=== PATIENT | male | born 1995 | race Caucasian/White ===

== ENCOUNTER 2016-12-24 20:27 | Emergency (ER) | payer BC, OTHER ==
[~2016-12-24] VITALS: Ht 175.3 cm; Wt 109.1 kg
[~2016-12-24 20:27] MED LIST: ABL15 PO; LTH300C PO
[2016-12-24 20:30] VITALS: TEMP 37.3; Ht 175.3 cm; Wt 109.1 kg
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
[2016-12-24 21:35] LABS: BASO % 0.1 %; BASO ABS # 0.01 K/uL (0-0.2); COMPLETE YES; EOS % 1.3 %; HEMATOCRIT 46.2 % (42-52); IG% 0.2 %; LYMPH % 16.9 %; MEAN CELL VOLUME 82.2 fL (80-100); MEAN CORPUSCULAR HEMOGLOBIN 28.5 pg (25-34); MEAN CORPUSCULAR HGB CONC 34.6 g/dl (32-36); MEAN PLATELET VOLUME 9.5 fL (7.4-10.4); MONO % 5.2 %; NEUT % 76.3 %; PLATELET COUNT 230 K/uL (130-400); RED BLOOD COUNT 5.62 M/uL (4.7-6.1); WHITE BLOOD COUNT 8.89 K/uL (4.8-10.8)
[2016-12-24 21:39] LABS: BENZODIAZEPINE, URINE NEG (NEG); COCAINE,URINE NEG (NEG); PHENCYCLIDINE, URINE NEG (NEG)
[2016-12-24 21:52] LABS: BUN/CREATININE RATIO 20.9 (10-20); CREATININE 0.9 mg/dl (0.60-1.40); POTASSIUM 3.9 mmol/L (3.5-5.1)
[2016-12-24 22:12] LABS: LITHIUM < 0.2 mMOL/L (0.6-1.2)
[2016-12-24 22:20] LABS: ACETAMINOPHEN < 2 ug/ml (10-30)
[2016-12-25 01:16] VITALS: BP 132/73; PULSE 76; O2SAT 96
== END 2016-12-25 01:20 ==
LOC: C.EDB 20:29 → C.EDA 12-25 01:20
DX: F32.9 Major depressive disorder, single episode, unspecified (principal); R45.851 Suicidal ideations; F41.9 Anxiety disorder, unspecified; Z87.891 Personal history of nicotine dependence

== ENCOUNTER 2017-09-10 23:17 | Emergency (ER) | payer BC, OTHER ==
[~2017-09-10] VITALS: Ht 175.3 cm; Wt 108.8 kg
[2017-09-10 23:21] VITALS: BP 162/86; PULSE 90; TEMP 36.9; O2SAT 98; Ht 175.3 cm; Wt 108.8 kg
[2017-09-10] MEDS ORDERED: DEXAMETHASONE SOD INJ 4 MG/ML VIAL IM STA (23:39)
[2017-09-10] MEDS ORDERED: DEXAMETHASONE INJ 8 MG in SYRINGE 0 ML IM STA (23:39)
--- NOTE | 2017-09-10 23:49 | EMERGENCY ROOM VISIT NOTE ---
ED Visit Note First contact with patient: 23:26 CHIEF COMPLAINT: Rash HISTORY OF PRESENT ILLNESS: This 21-year-old male patient presents to the emergency department, ambulatory, complaining of a rash on his entire upper body which started yesterday after wearing a full shirt he received for [employer], and worsened today after wearing the shirt again. He states he noticed the rash when he got home yesterday, and states the only thing that was different was he wear this brand-new shirt to an event. He states he noticed the rash initially in his armpits, on his hands, and his abdomen. He states he took a shower, and felt that the rash improved. This evening, he forgot that the shirt seemed to cause a rash yesterday, and or the shirt for another hour this evening. He states when he took it off, he noticed that he had a severe rash on both arms, his chest, his back, and abdomen. He has taken no medications or used any creams or lotions, as he states he does not have anything at home to take. The patient denies fever, chills, nausea, or loss of appetite. They deny any URI symptoms. The patient states the rash is itchy and rates the discomfort as 7/10. No change in food, soap, detergents, or other environmental factors. No new medications. No weakness or numbness. REVIEW OF SYSTEMS: A 6 system review of systems was completed with positives and pertinent negatives listed in the HPI. ALLERGIES: Adderall, risperidone MEDICATIONS: None PMH: None SOCIAL HISTORY: The patient lives locally with [facility]. He denies drug, alcohol , tobacco use. PHYSICAL EXAM: Vital Signs: Reviewed Nurse's notes, vital signs stable. GENERAL : This is a 21-year-old obese white male, in no acute distress, well-developed, well-nourished. SKIN: Maculopapular rash noted on bilateral hands, arms, and anterior left abdomen. There are excoriations noted in all areas of the rash. There is no drainage. There is no diaphoresis or cyanosis noted. Capillary refill less than 2 seconds. EMERGENCY DEPARTMENT COURSE: The patient was seen and evaluated as above. The rash appears consistent with a contact dermatitis due to the wool shirt the patient wore for the first time based on history and physical examination. The patient was given 8mg Decadron and 50mg Benadryl for the itchiness. Discharge instructions were reviewed. The patient was discharged home in good condition. I attest that I have personally reviewed the patient's current medication list. Blood Pressure Screening: Patient was found to have a slightly elevated blood pressure due to circumstances. I do not believe that the patient requires hypertension monitoring. DIFFERENTIAL DIAGNOSIS: Contact dermatitis, allergic dermatitis, urticaria, allergic reaction, anaphylaxis, metabolic disorder, endocrine disorder, burn, hepatic abnormality, malignancy, and others DIAGNOSIS: contact dermatitis Problem List Medical Problems: (1) Anxiety Status: Chronic (2) Depression Status: Chronic Current/Historical Medications No Active Prescriptions or Reported Meds Allergies Coded Allergies: Amphetamine (Unverified Allergy, Unknown, TREMOR, 09/10/17) PT IS NOT SURE IF IT WAS ADDERALL OR RISPERDAL Dextroamphetamine (Unverified Allergy, Unknown, TREMOR, 09/10/17) PT IS NOT SURE IF IT WAS ADDERALL OR RISPERDAL Risperidone (Unverified Allergy, Unknown, TREMOR, 09/10/17) PT NOT SURE IF IT WAS ADDERALL OR RISPERDAL Vital Signs Date Time Temp Pulse Resp B/P (MAP) Pulse Ox O2 Delivery O2 Flow Rate FiO2 09/10/17 23:21 36.9 90 18 162/86 98 Room Air Medications Administered Medications (Trade) Dose Ordered Sig/Laura Route Start Time Stop Time Status Last Admin Dose Admin Diphenhydramine HCl (Benadryl Cap) 50 mg NOW STAT PO 09/10/17 23:39 09/10/17 23:41 DC 09/10/17 23:49 50 MG Departure Information Impression Primary Impression: Contact dermatitis Dispostion Home / Self-Care Condition GOOD Prescriptions No Active Prescriptions or Reported Meds Referrals Melody Griffin M.D. (PCP) Patient Instructions ED Allergic Reaction Local Other, My [facility] Additional Instructions You have been treated in the Emergency Department for an Allergic Reaction. You have been treated and monitored in the Emergency Department appropriately. You should take Benadryl (diphenhydramine) 25-50 mg orally every 4-6 hours for the next 5-7 days. This medication is [id number] and you will NOT need a prescription to purchase this at your local pharmacy. You should continue taking the Benadryl for the COMPLETION of the 5-7 days. This is to prevent a rebound allergic reaction in the event that allergens are still present in your system. You were given Decadron, a steroid, in the emergency department. You may use OTC Benadryl or steroid cream such as hydrocortisone cream. These can be picked up at any pharmacy. As with every Emergency Department visit, you should follow-up with your primary care provider in 2-3 days for reevaluation. Return to the Emergency Department if your current symptoms worsen despite treatment course outlined above, or if you develop any of the following symptoms : wheezing, tongue or face swelling, tightness in your throat, shortness of breath, or fainting. Problem Qualifiers Primary Impression: Contact dermatitis Contact dermatitis type: allergic Contact dermatitis trigger: other trigger Qualified Codes: L23.89 - Allergic contact dermatitis due to other agents
[2017-09-10] MEDS ORDERED: DEXAMETHASONE SOD INJ 4 MG/ML VIAL ONE (23:51)
== END 2017-09-11 00:08 | disposition home or self-care (01) ==
LOC: C.EDB 23:19 → C.EDA 09-11 00:08
DX: L23.89 Allergic contact dermatitis due to other agents (principal); F41.9 Anxiety disorder, unspecified; F32.9 Major depressive disorder, single episode, unspecified

== ENCOUNTER 2021-06-08 00:16 | Inpatient (IN) ==
[2021-06-08] MEDS ORDERED: DEXAMETHASONE SOD INJ 4 MG/ML VIAL ONE (01:21)
[2021-06-08 01:37] LABS: Basophils # (auto) 0.01 K/uL (0-0.2); Basophils % (auto) 0.2 %; Eosinophils # (auto) 0.01 K/uL (0-0.5); Eosinophils % (auto) 0.2 %; Hematocrit (blood only) 40.9 % (42-52); Immature Granulocytes # (auto) 0.01 K/uL (0.00-0.02); Immature Granulocytes % (auto) 0.2 %; Lymphocytes # (auto) 0.98 K/uL (1.2-3.4); Lymphocytes % (auto) 20.5 %; Mean Corpuscular Hemoglobin 27.8 pg (25-34); Mean Corpuscular Hgb Conc 34.2 g/dL (32-36); Mean Corpuscular Volume 81.3 fL (80-100); Mean Platelet Volume 9.2 fL (7.4-10.4); Monocytes # (auto) 0.35 K/uL (0.11-0.59); Monocytes % (auto) 7.3 %; Neutrophils # (auto) 3.43 K/uL (1.4-6.5); Neutrophils % (auto) 71.6 %; Platelet Count 158 K/uL (130-400); RDW Coefficient of Variation 13.7 % (11.5-14.5); RDW Standard Deviation 41.2 fL (36.4-46.3); Red Blood Count 5.03 M/uL (4.7-6.1); White Blood Count 4.79 K/uL (4.8-10.8)
[2021-06-08 01:58] LABS: Alanine Aminotransferase 48 U/L (12-78); Aspartate Aminotransferase 43 U/L (15-37); BUN Creatinine Ratio 10.4 (10-20); Blood Urea Nitrogen 10 mg/dl (7-18); Calcium 7.9 mg/dl (8.5-10.1); Carbon Dioxide 25 mmol/L (21-32); Chloride 101 mmol/L (98-107); Creatinine Clr Calc Pharmacy 128.2 ml/min; Est GFR (African American) 122.8 ml/min; Glucose 135 mg/dl (70-99); Potassium 3.7 mmol/L (3.5-5.1); Sodium 133 mmol/L (136-145)
[2021-06-08 02:03] LABS: Albumin Globulin Ratio 0.7 (0.9-2); Alkaline Phosphatase 66 U/L (45-117); Bilirubin,Total 0.4 mg/dl (0.2-1); Globulin 4.1 gm/dl (2.5-4.0); Total Protein 7.1 gm/dl (6.4-8.2); Troponin I < 0.015 ng/ml (0-0.045)
[2021-06-08 02:31] LABS: D Dimer 400 ug/L FEU (0-500)
[2021-06-08] MEDS ORDERED: OPTIRAY 320 125ml IV ONE (02:40)
--- NOTE | 2021-06-08 03:08 | Emergency Department Note ---
Impression & Plan Pneumonia due to 2019 novel coronavirus, Hypoxia ED Provider Note INFORMANT: Patient ED PROVIDER(S): Michael Siegel MD CHIEF COMPLAINT: Shortness of PLAN: Disposition: Admit Condition: Good Outpatient prescription management: none Referral: None MEDICAL DECISION MAKING: Patient presented back to emergency department. He is requiring supplemental oxygen. Overall he is stable otherwise. He had unremarkable CBC and chemistry panel. The patient underwent CT imaging of his chest and significant bilateral infiltrates are noted consistent with Covid pneumonia. Patient was given IV Decadron. Consultation was made with Dr. Pratik Parham, [facility] hospitalist service. Patient was evaluated in the ER and admitted for further management. Triage Nursing notes reviewed and agree them. Vital Signs: reviewed and remarkable for hypoxia Differential diagnosis: COVID-19, reactive airway disease, pneumonia, pneumothorax, COPD, CHF, infections, cardiac ischemia, pulmonary embolism, musculoskeletal, gastrointestinal, as well as other pathologies. Diagnostics interpreted by me: EC Lead ECG performed and revealed Normal sinus rhythym at 99 bpm, normal [place], QRS normal. No elevation or depression. No PACs or PVCs Cardiac Monitoring: Cardiac monitoring ordered by me: The patient was placed on continuous cardiac monitoring and observed. It revealed a normal sinus rhythm at 117 beats per minute without ectopy or evidence of dysrhythmia. Imaging studies: CT angiography of the chest consistent with Covid pneumonia. HPI: The patient is a 25 year old male who presents to the Emergency Room with complaints of shortness of breath. This started a few days ago and is worsening. The patient was seen in the ED earlier and was diagnosed with Covid. He was discharged and then called back because of concerns about oxygen saturation. The patient also notes the following associated symptoms, fatigue, fever, cough. The patient has found no relieving factors. Current pain is rate d as 0/10. Pt denies LOC, headache, diaphoresis, visual changes, neck pain, chest pain, nausea, vomiting, abdominal pain, back pain, melena, hematochezia, urinary symptoms, numbness, weakness, lymphadenopathy, rash, or other complaints. ROS: See above HPI for pertinent positives & negatives. A total of 10 systems reviewed and were otherwise negative. PAST MEDICAL HISTORY:See Below , mood disorder PAST SURGICAL HISTORY:See Below, FAMILY HISTORY:See Below SOCIAL HISTORY:See Below, non-smoker HOME MEDICATIONS:See Below ALLERGIES:See Below VITALS:See Below PHYSICAL EXAMINATION: GENERAL: Awake, alert, mildly-appearing, in no distress HENT: Normocephalic, atraumatic. Oropharynx unremarkable. EYES: Normal conjunctiva. Sclera non-icteric. NECK: Inspection normal. Non-tender. Supple. No nuchal rigidity. FROM. No masses. RESPIRATORY: Scattered rales.. No wheezes. Increase respiratory effort. CARDIAC: Normal rate. Normal rhythm. No murmurs. No rubs. Extremities warm and well perfused. Pulses equal. No JVD. GI: Soft, non-distended. No tenderness to palpation. No rebound or guarding. No masses. RECTAL: Deferred. MUSCULOSKELETAL: Atraumatic. Chest examination reveals no tenderness. The back is symmetrical on inspection without obvious abnormality. There is no CVA tenderness to palpation. No joint edema. LOWER EXTREMITIES: Calves are equal size bilaterally and non-tender. No edema. No discoloration. NEURO: Normal sensorium. No sensory or motor deficits noted. SKIN: No rash or jaundice noted. Michael Siegel MD Past Med/Surg History Medical History (Updated 06/08/21 @ 03:08 by Michael Siegel MD) Anxiety Chest pain Depression Depression with suicidal ideation Hand, foot, and mouth disease Mood disorder Family History Other No significant family history Social History Smoking Status: Never smoker Preferred Language: Kuwaiti Feels Safe at Home: Yes Allergies Allergies Allergy/AdvReac Type Severity Reaction Status Date / Time amphetamine Allergy Unknown TREMOR Verified 06/08/21 01:16 dextroamphetamine Allergy Unknown TREMOR Verified 06/08/21 01:16 risperidone Allergy Unknown TREMOR Verified 05/18/19 17:56 Home Meds Home Medications Medication Instructions Recorded Confirmed phenylephrine-guaifenesin 2.5 20 ml PO BID 06/07/21 06/08/21 mg-100 mg/5 mL oral liquid zinc 50 mg tablet 50 mg PO DAILY 06/07/21 06/08/21 Previous Rx's Medication Instructions Recorded albuterol sulfate 90 mcg/actuation 2 puffs INH 6XD PRN #6.7 gm 06/07/21 aerosol inhaler benzonatate 100 mg capsule 100 mg PO TID PRN 5 Days #15 cap 06/07/21 (Ceceliaanamariaesequiel Candelaria) Results & Data (ED) Vital Signs Vital Signs - 24 hr 06/08/21 01:00 06/08/21 01:03 06/08/21 01:10 Temperature Temperature Source Pulse Rate 112 H 107 H Pulse Rhythm Pulse Strength Respiratory Rate 17 23 Respiratory Effort / Characteristics Respiratory Depth Respiratory Pattern Blood Pressure 148/122 H Blood Pressure Mean 130 Blood Pressure Position Pulse Oximetry 91 91 93 Oxygen Delivery Method Room Air Oxygen Flow Rate 2 2 Sepsis Recent Fever Within 48 Hours Sepsis New/Unexplained Change in Mental Status Sepsis Action Taken by Nursing 06/08/21 01:20 06/08/21 01:21 06/08/21 01:30 Temperature Temperature Source Pulse Rate 100 H 102 H Pulse Rhythm Pulse Strength Respiratory Rate 27 H 22 Respiratory Effort / Characteristics Respiratory Depth Respiratory Pattern Blood Pressure Blood Pressure Mean Blood Pressure Position Pulse Oximetry 96 97 96 Oxygen Delivery Method Nasal Cannula Oxygen Flow Rate 2 2 2 Sepsis Recent Fever Within 48 Hours Sepsis New/Unexplained Change in Mental Status Sepsis Action Taken by Nursing 06/08/21 01:35 06/08/21 01:40 06/08/21 01:50 Temperature 36.7 C Temperature Source Oral Pulse Rate 110 H 97 H 98 H Pulse Rhythm Regular Pulse Strength Normal Respiratory Rate 22 22 24 Respiratory Effort / Characteristics Non-Labored Respiratory Depth Normal Respiratory Pattern Regular Blood Pressure 148/97 H Blood Pressure Mean 114 Blood Pressure Position Sitting Pulse Oximetry 87 L 93 95 Oxygen Delivery Method Room Air Oxygen Flow Rate 2 2 Sepsis Recent Fever Within 48 Hours No Sepsis New/Unexplained Change in Mental Status No Sepsis Action Taken by Nursing Physician Notified 06/08/21 02:00 06/08/21 02:10 06/08/21 02:20 Temperature Temperature Source Pulse Rate 102 H 105 H 117 H Pulse Rhythm Pulse Strength Respiratory Rate 24 27 H 24 Respiratory Effort / Characteristics Respiratory Depth Respiratory Pattern Blood Pressure 145/86 H Blood Pressure Mean 105 Blood Pressure Position Pulse Oximetry 94 95 95 Oxygen Delivery Method Oxygen Flow Rate 2 2 2 Sepsis Recent Fever Within 48 Hours Sepsis New/Unexplained Change in Mental Status Sepsis Action Taken by Nursing Laboratory Data Result diagrams: 06/08/21 Unknown 06/08/21 Unknown Lab Results 06/08/21 06/08/21 06/08/21 Range/Units 02:12 Unknown Unknown WBC 4.79 L (4.8-10.8) K/uL RBC 5.03 (4.7-6.1) M/uL Hgb 14.0 (14.0-18.0) g/dL Hct 40.9 L (42-52) % MCV 81.3 (80-100) fL MCH 27.8 (25-34) pg MCHC 34.2 (32-36) g/dL RDW Std Deviation 41.2 (36.4-46.3) fL RDW Coeff of [place] 13.7 (11.5-14.5) % Plt Count 158 (130-400) K/uL MPV 9.2 (7.4-10.4) fL Immature Gran % (Auto) 0.2 % Neut % (Auto) 71.6 % Lymph % (Auto) 20.5 % [place] % (Auto) 7.3 % Eos % (Auto) 0.2 % Baso % (Auto) 0.2 % Neut # (Auto) 3.43 (1.4-6.5) K/uL Lymph # (Auto) 0.98 L (1.2-3.4) K/uL [place] # (Auto) 0.35 (0.11-0.59) K/uL Eos # (Auto) 0.01 (0-0.5) K/uL Baso # (Auto) 0.01 (0-0.2) K/uL Immature Gran # (Auto) 0.01 (0.00-0.02) K/uL D-Dimer 400 (0-500) ug/L FEU Sodium 133 L (136-145) mmol/L Potassium 3.7 (3.5-5.1) mmol/L Chloride 101 (98-107) mmol/L Carbon Dioxide 25 (21-32) mmol/L Anion Gap 7.0 (3-11) BUN 10 (7-18) mg/dl Creatinine 0.98 (0.6-1.4) mg/dl Est Cr Clr Drug Dosing 128.2 ml/min Est GFR ( Amer) 122.8 ml/min Est GFR (Non-Af Amer) 106.0 ml/min BUN/Creatinine Ratio 10.4 (10-20) Glucose 135 H (70-99) mg/dl Calcium 7.9 L (8.5-10.1) mg/dl Total Bilirubin 0.4 (0.2-1) mg/dl AST 43 H (15-37) U/L ALT 48 (12-78) U/L Alkaline Phosphatase 66 (45-117) U/L Troponin I < 0.015 (0-0.045) ng/ml Total Protein 7.1 (6.4-8.2) gm/dl Albumin 3.0 L (3.4-5.0) gm/dl Globulin 4.1 H (2.5-4.0) gm/dl Albumin/Globulin Ratio 0.7 L (0.9-2) Specimen Hemolysis 06/08/21 Range/Units Unknown WBC (4.8-10.8) K/uL RBC (4.7-6.1) M/uL Hgb (14.0-18.0) g/dL Hct (42-52) % MCV (80-100) fL MCH (25-34) pg MCHC (32-36) g/dL RDW Std Deviation (36.4-46.3) fL RDW Coeff of [place] (11.5-14.5) % Plt Count (130-400) K/uL MPV (7.4-10.4) fL Immature Gran % (Auto) % Neut % (Auto) % Lymph % (Auto) % [place] % (Auto) % Eos % (Auto) % Baso % (Auto) % Neut # (Auto) (1.4-6.5) K/uL Lymph # (Auto) (1.2-3.4) K/uL [place] # (Auto) (0.11-0.59) K/uL Eos # (Auto) (0-0.5) K/uL Baso # (Auto) (0-0.2) K/uL Immature Gran # (Auto) (0.00-0.02) K/uL D-Dimer Cancelled (0-500) ug/L FEU Sodium (136-145) mmol/L Potassium (3.5-5.1) mmol/L Chloride (98-107) mmol/L Carbon Dioxide (21-32) mmol/L Anion Gap (3-11) BUN (7-18) mg/dl Creatinine (0.6-1.4) mg/dl Est Cr Clr Drug Dosing ml/min Est GFR ( Amer) ml/min Est GFR (Non-Af Amer) ml/min BUN/Creatinine Ratio (10-20) Glucose (70-99) mg/dl Calcium (8.5-10.1) mg/dl Total Bilirubin (0.2-1) mg/dl AST (15-37) U/L ALT (12-78) U/L Alkaline Phosphatase (45-117) U/L Troponin I (0-0.045) ng/ml Total Protein (6.4-8.2) gm/dl Albumin (3.4-5.0) gm/dl Globulin (2.5-4.0) gm/dl Albumin/Globulin Ratio (0.9-2) Specimen Hemolysis Administered Medications Discontinued Medications Dexamethasone (Dexamethasone Sod Inj 4 Mg/Ml Vial) Confirm Administered Dose 8 mg .ROUTE .STK-MED ONE Stop: 06/08/21 01:22 Last Admin: 06/08/21 01:42 Dose: 6 mg Documented by: [id number] Ioversol (Optiray 320 125ml) 125 ml IV ONCE ONE Stop: 06/08/21 02:41 Last Admin: 06/08/21 02:41 Dose: 119 ml Documented by: [id number] Discharge Plan Visit Data Chief Complaint: Shortness of Breath/Dyspnea Stated Complaint: SOB ED Provider: Michael Siegel Discharge Problem: Pneumonia due to 2019 novel coronavirus, Hypoxia Forms Stand Alone Forms: My [facility] Prescriptions Prescriptions: No Action zinc 50 mg Tablet 50 mg PO DAILY RF: 0 Mucinex Cold 2.5-100 mg/5 mL Liquid 20 ml PO BID RF: 0 benzonatate [Tessalon Perles] 100 mg capsule 100 mg PO TID PRN (Reason: cough) 5 Days Qty: 15 RF: 0 albuterol sulfate 90 mcg/actuation HFA aerosol inhaler 2 puffs INH 6XD PRN (Reason: shortness of breath or wheezing) Qty: 6.7 RF: 0 Referrals Referrals: Michael Chavez MD [Primary Care Provider] -
[2021-06-08] MEDS ORDERED: POTASSIUM CHLORIDE 40 MEQ in SODIUM CHLORIDE 0.9% 1000ML 1,000 ML IV STA (03:09)
[2021-06-08] MEDS ORDERED: REMDESIVIR 200 MG in SODIUM CHLORIDE 0.9% 210 ML IV STA (03:40)
--- NOTE | 2021-06-08 03:40 | History & Physical Report ---
Date of Service June 08, 2021 Assessment & Plan (1) Acute hypoxemic respiratory failure: Plan: Secondary to severe COVID-19 pneumonia hx ADD/Asperger's syndrome, currently not on medications. Hyperglycemia rule out DM past tobacco abuse Medical telemetry Supplemental O2 Decadron and Remdesivir for severe COVID-19 pneumonia. (Patient was counseled regarding potential adverse effects from Remdesivir therapy and provided with patient education sheet.) Pulmonary consult if without improvement. Check hemoglobin A1c DVT prophylaxis per Lovenox subcu Full code Patient requesting for his mother to be updated updated progress. Ms. Ginna Grace, contact #[phone]. Text document was generated using [employer] voice recognition software. It may contain grammatical or spelling errors. Kindly contact undersigned for clarification of any documentation item in question. History of Present Illness Chief Complaint: Shortness of breath, Covid Primary Care Provider: Michael Chavez MD History obtained from patient and records. Medical history significant for ADD, Asperger's syndrome, past tobacco abuse. 1 week history of dry cough symptoms, loss of taste and smell, chest pain with coughing. Transient headache symptoms. No known recent COVID-19 contacts. Patient has not received COVID-19 vaccination. Patient seen at urgent care center yesterday. O2 sats 89 to 93%. Patient directed to ER for evaluation. Chest x-ray showed multifocal airspace opacities typical for pneumonia. COVID- 19 test was positive. O2 sats of 90s done at the ER false readings as per ER provider documentation. Patient discharged home. Worsening shortness of breath at home. Patient return to ER. O2 sats 80s on room air. IV Decadron given at the ER. Medical History as above Surgical History : None Family History : Hypertension, PUD Personal/Social history : Past tobacco abuse, occasional EtOH intake, disabled Allergies Allergy/AdvReac Type Severity Reaction Status Date / Time amphetamine Allergy Unknown TREMOR Verified 06/08/21 01:16 dextroamphetamine Allergy Unknown TREMOR Verified 06/08/21 01:16 risperidone Allergy Unknown TREMOR Verified 05/18/19 17:56 Home Medications Medication Instructions Recorded Confirmed Type albuterol sulfate 90 mcg/actuation 2 puffs INH 6XD PRN #6.7 gm 06/07/21 06/08/21 Rx aerosol inhaler benzonatate 100 mg capsule 100 mg PO TID PRN 5 Days #15 cap 06/07/21 06/08/21 Rx (Francesca Gaona) phenylephrine-guaifenesin 2.5 20 ml PO BID 06/07/21 06/08/21 History mg-100 mg/5 mL oral liquid zinc 50 mg tablet 50 mg PO DAILY 06/07/21 06/08/21 History Past Med/Surg History Medical History (Updated 06/08/21 @ 07:26 by Pratik Parham MD) Anxiety Chest pain Depression Depression with suicidal ideation Hand, foot, and mouth disease Mood disorder Family History Other No significant family history Social History Smoking Status: Never smoker Second Hand Exposure: No; Do You Dip or Chew Tobacco: No; Hx Alcohol Use: No Hx Substance Use: No Preferred Language: Khmer Communication Ability: Effective 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 Beliefs That Will Affect Care: None Current Living Situation: Alone Other Information That Helps Us Care for You: No Feels Safe at Home: Yes Safety Concerns: Feels Safe At This Time Assistive Devices: Oxygen - Continuous Review of Systems Review of Systems: As per HPI, all 10 systems reviewed, all other ROS negative Physical Exam Physical Exam: GENERAL: Slightly uncomfortable, morbidly obese, minimal respiratory distress, incessant dry coughing SKIN: Normal color, warm HEENT: [place] palpebral conjunctivae, no ptosis, dry buccal mucosa, nasal cannula in place NECK : Supple, short neck, no tenderness CHEST : Decreased breath sounds, no tenderness HEART : Tachycardic, no obvious murmurs ABDOMEN: Some distention, nontender EXTREMITIES : Minimal LE swelling, no LE tenderness, no other conspicuous deformities noted NEUROLOGIC : Coherent, no facial asymmetry, no other gross focality Results & Data Results & Data ([facility]) Vital Signs (Past 12 Hours) Vital Signs Temp Pulse Resp BP Pulse Ox 06/08/21 03:33 92 06/08/21 02:20 117 H 24 145/86 H 95 06/08/21 02:10 105 H 27 H 95 06/08/21 02:00 102 H 24 94 06/08/21 01:50 98 H 24 95 10/19/21 01:40 97 H 22 93 06/08/21 01:35 36.7 C 110 H 22 148/97 H 87 L 06/08/21 01:30 102 H 22 96 06/08/21 01:21 97 06/08/21 01:20 100 H 27 H 96 06/08/21 01:10 107 H 23 93 06/08/21 01:03 112 H 17 148/122 H 91 06/08/21 01:00 91 Laboratory Results Lab Results 06/08/21 06/08/21 06/08/21 Range/Units 02:12 02:13 Unknown WBC 4.79 L (4.8-10.8) K/uL RBC 5.03 (4.7-6.1) M/uL Hgb 14.0 (14.0-18.0) g/dL Hct 40.9 L (42-52) % MCV 81.3 (80-100) fL MCH 27.8 (25-34) pg MCHC 34.2 (32-36) g/dL RDW Std Deviation 41.2 (36.4-46.3) fL RDW Coeff of [place] 13.7 (11.5-14.5) % Plt Count 158 (130-400) K/uL MPV 9.2 (7.4-10.4) fL Immature Gran % (Auto) 0.2 % Neut % (Auto) 71.6 % Lymph % (Auto) 20.5 % [place] % (Auto) 7.3 % Eos % (Auto) 0.2 % Baso % (Auto) 0.2 % Neut # (Auto) 3.43 (1.4-6.5) K/uL Lymph # (Auto) 0.98 L (1.2-3.4) K/uL [place] # (Auto) 0.35 (0.11-0.59) K/uL Eos # (Auto) 0.01 (0-0.5) K/uL Baso # (Auto) 0.01 (0-0.2) K/uL Immature Gran # (Auto) 0.01 (0.00-0.02) K/uL D-Dimer 400 (0-500) ug/L FEU Sodium (136-145) mmol/L Potassium (3.5-5.1) mmol/L Chloride (98-107) mmol/L Carbon Dioxide (21-32) mmol/L Anion Gap (3-11) BUN (7-18) mg/dl Creatinine (0.6-1.4) mg/dl Est Cr Clr Drug Dosing ml/min Est GFR ( Amer) ml/min Est GFR (Non-Af Amer) ml/min BUN/Creatinine Ratio (10-20) Glucose (70-99) mg/dl Calcium (8.5-10.1) mg/dl Magnesium 1.9 (1.8-2.4) mg/dl Total Bilirubin (0.2-1) mg/dl AST (15-37) U/L ALT (12-78) U/L Alkaline Phosphatase (45-117) U/L Troponin I (0-0.045) ng/ml Total Protein (6.4-8.2) gm/dl Albumin (3.4-5.0) gm/dl Globulin (2.5-4.0) gm/dl Albumin/Globulin Ratio (0.9-2) Specimen Hemolysis 06/08/21 06/08/21 Range/Units Unknown Unknown WBC (4.8-10.8) K/uL RBC (4.7-6.1) M/uL Hgb (14.0-18.0) g/dL Hct (42-52) % MCV (80-100) fL MCH (25-34) pg MCHC (32-36) g/dL RDW Std Deviation (36.4-46.3) fL RDW Coeff of [place] (11.5-14.5) % Plt Count (130-400) K/uL MPV (7.4-10.4) fL Immature Gran % (Auto) % Neut % (Auto) % Lymph % (Auto) % [place] % (Auto) % Eos % (Auto) % Baso % (Auto) % Neut # (Auto) (1.4-6.5) K/uL Lymph # (Auto) (1.2-3.4) K/uL [place] # (Auto) (0.11-0.59) K/uL Eos # (Auto) (0-0.5) K/uL Baso # (Auto) (0-0.2) K/uL Immature Gran # (Auto) (0.00-0.02) K/uL D-Dimer Cancelled (0-500) ug/L FEU Sodium 133 L (136-145) mmol/L Potassium 3.7 (3.5-5.1) mmol/L Chloride 101 (98-107) mmol/L Carbon Dioxide 25 (21-32) mmol/L Anion Gap 7.0 (3-11) BUN 10 (7-18) mg/dl Creatinine 0.98 (0.6-1.4) mg/dl Est Cr Clr Drug Dosing 128.2 ml/min Est GFR ( Amer) 122.8 ml/min Est GFR (Non-Af Amer) 106.0 ml/min BUN/Creatinine Ratio 10.4 (10-20) Glucose 135 H (70-99) mg/dl Calcium 7.9 L (8.5-10.1) mg/dl Magnesium (1.8-2.4) mg/dl Total Bilirubin 0.4 (0.2-1) mg/dl AST 43 H (15-37) U/L ALT 48 (12-78) U/L Alkaline Phosphatase 66 (45-117) U/L Troponin I < 0.015 (0-0.045) ng/ml Total Protein 7.1 (6.4-8.2) gm/dl Albumin 3.0 L (3.4-5.0) gm/dl Globulin 4.1 H (2.5-4.0) gm/dl Albumin/Globulin Ratio 0.7 L (0.9-2) Specimen Hemolysis Diagnostic Findings CTA chest initial read: The pulmonaryarterial tree iswell-opacified with contrast. No pulmonaryemboli are identified. The thoracic aorta is nondilated. There is no aneurysmor dissection. Moderate diffuse rounded patchygroundglass infiltrates throughout both lungs characteristic of Covid 19 pneumonia. No pneumothorax or pleural effusion. Skeletal structures are unremarkable. Fattyinfiltration of the liver. EKG as per my interpretation :
[2021-06-08] MEDS ORDERED: LEVALBUTEROL TARTRATE 15 GM HFA.AER.AD INH STA (03:41)
[2021-06-08] MEDS ORDERED: MAGNESIUM SULFATE / D5W 1 GM/100 ML BAG IV STA (03:54)
[2021-06-08 04:44] LABS: Appearance Urine Clear (Clear); Bacteria Urine Automated Negative (Negative); Bilirubin Urine Negative (Negative); Blood Urine Trace (Negative); Cast Urine Automated 0 /lpf (0-5); Color Urine Yellow; Epithelial Cell Urine Auto 0-5 /lpf (0-5); Glucose Urine UA Negative (Negative); Ketones Urine Negative (Negative); Leukocyte Esterase Urine Negative (Negative); Nitrite Urine Negative (Negative); Protein Urine Negative (Negative); RBC Urine Automated 0-4 /hpf (0-4); Specific Gravity Urine 1.033 (1.000-1.030); Urobilinogen Urine Negative (Negative); WBC Urine Automated 0 /hpf (0-5); pH Urine 5.5 (4.5-7.5)
[2021-06-08] MEDS ORDERED: PROMETHAZINE HCL 12.5 MG in SODIUM CHLORIDE 0.9% 50 ML IV PRN (04:58)
[2021-06-08] MEDS ORDERED: ACETAMINOPHEN 325 MG TAB PO PRN (04:58)
[2021-06-08] MEDS ORDERED: traMADol HCL 50 MG TABLET PO PRN (04:58)
[2021-06-08] MEDS ORDERED: LEVALBUTEROL TARTRATE 15 GM HFA.AER.AD INH PRN (04:58)
[2021-06-08] MEDS ORDERED: FLUARIX QUADRIVALENT 0.5 ML SYR IM ONE ×2 (05:21→05:30)
[2021-06-08] MEDS: SODIUM CHLORIDE 0.9% 10ML FLUSH IV SCH (05:39)
[2021-06-08 07:47] LABS: Estimated Average Glucose 148 mg/dl; Hemoglobin A1C 6.8 % (4.5-5.6)
--- NOTE | 2021-06-08 08:24 | CT Scan Report ---
CT ANGIOGRAPHY OF THE CHEST, PULMONARY EMBOLUS PROTOCOL CLINICAL HISTORY: Dyspnea. Cough. Shortness of breath. Covid. COMPARISON STUDY: Chest radiograph June 07, 2021. TECHNIQUE: Following IV administration of 119 mL of Optiray, helical axial images of the chest were o btained utilizing the pulmonary embolus protocol. Maximal intensity projections and sagittal and cor onal reformats were viewed on an independent 3D workstation. IV contrast was administered without co mplication. Automated exposure control was utilized for the study. A dose lowering technique was ut ilized adhering to the principles of ALARA. CT DOSE: 919.31 mGy.cm FINDINGS: No pulmonary emboli are identified although the segmental and subsegmental pulmonary arter ies are suboptimally assessed due to respiratory motion. No pericardial effusion. There is borderline cardiomegaly. Mildly enlarged mediastinal and bilateral hilar lymph nodes are noted. Note is made of multifocal alteration groundglass opacities throughout the lungs. Central airways are patent. No pne umothorax or pleural effusion. Hepatic steatosis is noted. IMPRESSION: 1. No pulmonary emboli identified although segmental and subsegmental pulmonary arteries suboptimally assessed due to respiratory motion. 2. Multifocal consolidation and ground glass opacities throughout the lungs consistent with viral pne umonia. 3. Mildly enlarged mediastinal and bilateral hilar lymph nodes which are likely reactive. 4. Hepatic steatosis. ACT 112: Negative or not required by law. Electronically signed by: Cj Moore M.D. 06/08/2021 8:23 AM
[2021-06-08] MEDS: guaiFENesin 600 MG TABCR PO SCH ×2 (09:04→20:46)
[2021-06-08] MEDS: ENOXAPARIN INJ 40 MG/0.4 ML SYR SQ SCH (09:05)
[2021-06-08] MEDS ORDERED: ALBUTEROL 0.083% NEBU SOLN 3 ML VIAL NEB PRN (09:10)
--- NOTE | 2021-06-08 15:26 | Hospitalist Progress Note ---
Date of Service June 08, 2021 Assessment & Plan (1) Acute hypoxemic respiratory failure: Plan: COVID-19 associated pneumonia with acute hypoxic respiratory failure --CTA:No pulmonary emboli identified although segmental and subsegmental pulmonary arteries suboptimally assessed due to respiratory motion. Multifocal consolidation and ground glass opacities throughout the lungs consistent with viral pneumonia. Mildly enlarged mediastinal and bilateral hilar lymph nodes which are likely reactive. Hepatic steatosis. -Negative troponin -Check CRP, Procalcitonin Continue Remdesivir, Dexamethasone Encourage frequent Proning Lasix as needed Albuterol PRN Continue Supplemental Oxygen DVT prophylaxis on Lovenox Monitor LFTs, renal function while on Remdesivir Morbid Obesity BMI:44 H/O ADD/Asperger's syndrome currently not on medications. 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 Past tobacco abuse DVT Px: Lovenox SQ Code Status Full code Admission and Anticipated Discharge Date Admission Date: June 08, 2021 Subjective Patient is seen and examined at bedside States feeling better when compared to yesterday Reports cough Denies any significant dyspnea Also denies chest pain, dizziness, nausea, abdominal pain Offers no other complaints Eager to get discharged Currently on 12 L of oxygen Review of Systems Review of Systems: All systems reviewed & are unremarkable except as noted in Subjective Physical Exam Physical Exam: Physical Exam: Vitals signs as noted above General Appearance:Morbid Obesity, no apparent distress Head: normocephalic, Atraumatic Eyes: normal inspection, EOMI Neck: supple, Trachea midline Respiratory/Chest: Decreased breath sounds, CTA Cardiovascular: S1, S2, No murmur Abdomen/GI:Soft, Non tender, Bowel sounds present Extremities/Musculoskeletal:normal inspection, no edema Neurologic/Psych:AAOX3, grossly no focal neurological deficits Skin: normal color, warm Results & Data Results & Data ([facility]) Vital Signs (Past 12 Hours) Vital Signs Temp Pulse Pulse Resp BP Pulse Ox Pulse Ox 06/08/21 11:14 97 06/08/21 11:12 36.8 C 87 20 129/67 96 06/08/21 08:00 88 98 06/08/21 07:24 36.9 C 106 H 24 141/78 H 93 06/08/21 05:00 88 06/08/21 04:58 37.6 C H 97 H 22 140/89 92 92 06/08/21 04:10 101 H 28 H 96 06/08/21 04:00 104 H 25 H 95 06/08/21 03:50 110 H 18 96 06/08/21 03:40 108 H 18 92 06/08/21 03:33 92 06/08/21 03:30 96 H 22 98 Laboratory Results Short CBC 06/08/21 Range/Units Unknown WBC 4.79 L (4.8-10.8) K/uL Hgb 14.0 (14.0-18.0) g/dL Hct 40.9 L (42-52) % Plt Count 158 (130-400) K/uL BMP 06/08/21 Unknown Sodium 133 L Potassium 3.7 Chloride 101 Carbon Dioxide 25 BUN 10 Creatinine 0.98 Glucose 135 H Calcium 7.9 L Cardiac Enzymes 06/08/21 Range/Units Unknown Troponin I < 0.015 (0-0.045) ng/ml Liver Function 06/08/21 Range/Units Unknown Total Bilirubin 0.4 (0.2-1) mg/dl AST 43 H (15-37) U/L ALT 48 (12-78) U/L Alkaline Phosphatase 66 (45-117) U/L Albumin 3.0 L (3.4-5.0) gm/dl Urine 06/08/21 Range/Units Unknown Urine Color Yellow Urine Appearance Clear (Clear) Urine pH 5.5 (4.5-7.5) Ur Specific Jber 1.033 H (1.000-1.030) Urine Protein Negative (Negative) Urine Glucose (UA) Negative (Negative)
[2021-06-08] MEDS ORDERED: DEXTROSE 50% 50 ML SYRINGE IV PRN (15:42)
[2021-06-08] MEDS ORDERED: GLUCOSE 40% GEL 15 GM TUBE PO PRN (15:42)
[2021-06-08] MEDS ORDERED: GLUCAGON FOR INJ 1 MG VIAL SQ PRN (15:42)
[2021-06-08] MEDS ORDERED: CARBOHYDRATES FOR HYPOGLYCEMIA PO PRN (15:42)
[2021-06-08] MEDS ORDERED: GLUCOSE 10 TABS/TUBE PO PRN (15:42)
[2021-06-08] MEDS: INSULIN ASPART 100 UNITS/ML 3 ML PEN SC SCH ×2 (17:53→20:47)
[2021-06-08] MEDS: INSULIN GLARGINE SOLOSTAR 100 UNITS/ML 3 ML PEN SC SCH (20:48)
[2021-06-09 06:34] LABS: Basophils # (auto) 0.01 K/uL (0-0.2); Basophils % (auto) 0.1 %; Hematocrit (blood only) 41.8 % (42-52); Hemoglobin 13.7 g/dL (14.0-18.0); Immature Granulocytes # (auto) 0.03 K/uL (0.00-0.02); Immature Granulocytes % (auto) 0.3 %; Lymphocytes # (auto) 1.27 K/uL (1.2-3.4); Lymphocytes % (auto) 14.2 %; Mean Corpuscular Hemoglobin 27.5 pg (25-34); Mean Corpuscular Hgb Conc 32.8 g/dL (32-36); Mean Corpuscular Volume 83.9 fL (80-100); Mean Platelet Volume 9.7 fL (7.4-10.4); Monocytes # (auto) 0.37 K/uL (0.11-0.59); Monocytes % (auto) 4.1 %; Neutrophils # (auto) 7.24 K/uL (1.4-6.5); Neutrophils % (auto) 81.3 %; Platelet Count 179 K/uL (130-400); RDW Coefficient of Variation 13.9 % (11.5-14.5); RDW Standard Deviation 42.4 fL (36.4-46.3); Red Blood Count 4.98 M/uL (4.7-6.1); White Blood Count 8.92 K/uL (4.8-10.8)
[2021-06-09 07:04] LABS: Albumin Level 2.9 gm/dl (3.4-5.0); BUN Creatinine Ratio 14.6 (10-20); C Reactive Protein 4.26 mg/dl (0-0.29); Calcium 8.3 mg/dl (8.5-10.1); Est GFR (African American) 139.4 ml/min; Est GFR (Non-African American) 120.3 ml/min
[2021-06-09 07:06] LABS: Albumin Globulin Ratio 0.7 (0.9-2); Bilirubin,Total 0.4 mg/dl (0.2-1); Globulin 4.1 gm/dl (2.5-4.0)
[2021-06-09] MEDS: guaiFENesin 600 MG TABCR PO SCH ×2 (08:29→20:50)
[2021-06-09] MEDS: ENOXAPARIN INJ 40 MG/0.4 ML SYR SQ SCH (08:29)
[2021-06-09] MEDS: dexAMETHasone 6 MG in SYRINGE 0 ML IV SCH (08:35)
[2021-06-09] MEDS: REMDESIVIR 100 MG in SODIUM CHLORIDE 0.9% 230 ML IV SCH (08:36)
[2021-06-09] MEDS: INSULIN ASPART 100 UNITS/ML 3 ML PEN SC SCH ×4 (09:04→20:49)
[2021-06-09] MEDS: INSULIN GLARGINE SOLOSTAR 100 UNITS/ML 3 ML PEN SC SCH ×2 (09:04→20:49)
[2021-06-09] MEDS: SODIUM CHLORIDE 0.9% 10ML FLUSH IV SCH (09:59)
--- NOTE | 2021-06-09 16:16 | Hospitalist Progress Note ---
Date of Service June 09, 2021 Assessment & Plan (1) Acute hypoxemic respiratory failure: Plan: COVID-19 associated pneumonia with acute hypoxic respiratory failure --CTA:No pulmonary emboli identified although segmental and subsegmental pulmonary arteries suboptimally assessed due to respiratory motion. Multifocal consolidation and ground glass opacities throughout the lungs consistent with viral pneumonia. Mildly enlarged mediastinal and bilateral hilar lymph nodes which are likely reactive. Hepatic steatosis. -Negative troponin -Check CRP, Procalcitonin Continue Remdesivir, Dexamethasone Encourage frequent Proning Lasix as needed Albuterol PRN Continue Supplemental Oxygen DVT prophylaxis on Lovenox Monitor LFTs, renal function while on Remdesivir Pulmonary toilet Currently on 15 L supplemental oxygen Wean oxygen as able Morbid Obesity BMI:44 H/O ADD/Asperger's syndrome currently not on medications. 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 Past tobacco abuse DVT Px: Lovenox SQ Code Status Full code Admission and Anticipated Discharge Date Admission Date: June 08, 2021 Subjective Patient is seen and examined at bedside Subjectively feels much better today Reports having cough with pinkish expectoration Denies any dyspnea, dizziness, nausea, abdominal pain He did to get discharged Currently on 15 L supplemental oxygen Review of Systems Review of Systems: All systems reviewed & are unremarkable except as noted in Subjective Physical Exam Physical Exam: Physical Exam: Vitals signs as noted above General Appearance:Morbid Obesity, no apparent distress Head: normocephalic, Atraumatic Eyes: normal inspection, EOMI Neck: supple, Trachea midline Respiratory/Chest: Decreased breath sounds, CTA Cardiovascular: S1, S2, No murmur Abdomen/GI:Soft, Non tender, Bowel sounds present Extremities/Musculoskeletal:normal inspection, no edema Neurologic/Psych:AAOX3, grossly no focal neurological deficits Skin: normal color, warm Results & Data Results & Data ([facility]) Vital Signs (Past 12 Hours) Vital Signs Temp Pulse Resp BP Pulse Ox 06/09/21 12:06 36.9 C 92 H 20 136/84 95 06/09/21 07:57 37.1 C 92 H 22 122/74 93 Laboratory Results Short CBC 06/09/21 Range/Units 05:45 WBC 8.92 (4.8-10.8) K/uL Hgb 13.7 L (14.0-18.0) g/dL Hct 41.8 L (42-52) % Plt Count 179 (130-400) K/uL BMP 06/09/21 05:45 Sodium 135 L Potassium 4.0 Chloride 102 Carbon Dioxide 29 BUN 12 Creatinine 0.85 Glucose 121 H Calcium 8.3 L Liver Function 06/09/21 Range/Units 05:45 Total Bilirubin 0.4 (0.2-1) mg/dl AST 29 (15-37) U/L ALT 39 (12-78) U/L Alkaline Phosphatase 62 (45-117) U/L Albumin 2.9 L (3.4-5.0) gm/dl
[2021-06-10] MEDS: ENOXAPARIN INJ 40 MG/0.4 ML SYR SQ SCH (08:38)
[2021-06-10] MEDS: dexAMETHasone 6 MG in SYRINGE 0 ML IV SCH (08:38)
[2021-06-10] MEDS: INSULIN GLARGINE SOLOSTAR 100 UNITS/ML 3 ML PEN SC SCH (08:39)
[2021-06-10] MEDS: guaiFENesin 600 MG TABCR PO SCH (08:39)
[2021-06-10] MEDS: INSULIN ASPART 100 UNITS/ML 3 ML PEN SC SCH ×3 (08:39→17:45)
[2021-06-10 08:45] LABS: Albumin Level 2.9 gm/dl (3.4-5.0); Aspartate Aminotransferase 25 U/L (15-37); Blood Urea Nitrogen 17 mg/dl (7-18); C Reactive Protein 7.31 mg/dl (0-0.29); Calcium 8.5 mg/dl (8.5-10.1); Carbon Dioxide 30 mmol/L (21-32); Chloride 102 mmol/L (98-107); Creatinine Clr Calc Pharmacy 201.7 ml/min; Est GFR (African American) > 150.0 ml/min; Est GFR (Non-African American) 130.2 ml/min; Glucose 135 mg/dl (70-99); Potassium 4.4 mmol/L (3.5-5.1); Sodium 136 mmol/L (136-145)
[2021-06-10 08:48] LABS: Alanine Aminotransferase 38 U/L (12-78); Albumin Globulin Ratio 0.7 (0.9-2); Alkaline Phosphatase 67 U/L (45-117); Bilirubin,Total 0.5 mg/dl (0.2-1); Globulin 4.3 gm/dl (2.5-4.0); Total Protein 7.2 gm/dl (6.4-8.2)
[2021-06-10] MEDS ORDERED: FUROSEMIDE 20 MG in SYRINGE 0 ML IV ONE (11:05)
[2021-06-10] MEDS ORDERED: FUROSEMIDE 40 MG/4 ML VIAL IV ONE (11:15)
[2021-06-10] MEDS: SODIUM CHLORIDE 0.9% 10ML FLUSH IV SCH (14:04)
[2021-06-10] MEDS: REMDESIVIR 100 MG in SODIUM CHLORIDE 0.9% 230 ML IV SCH (14:05)
--- NOTE | 2021-06-10 16:36 | Hospitalist Progress Note ---
Date of Service June 10, 2021 Assessment & Plan (1) Acute hypoxemic respiratory failure: Plan: COVID-19 associated pneumonia with acute hypoxic respiratory failure --CTA:No pulmonary emboli identified although segmental and subsegmental pulmonary arteries suboptimally assessed due to respiratory motion. Multifocal consolidation and ground glass opacities throughout the lungs consistent with viral pneumonia. Mildly enlarged mediastinal and bilateral hilar lymph nodes which are likely reactive. Hepatic steatosis. -Negative troponin -Check CRP, Procalcitonin Continue Remdesivir, Dexamethasone Encourage frequent Proning Lasix as needed Albuterol PRN Continue Supplemental Oxygen DVT prophylaxis on Lovenox Monitor LFTs, renal function while on Remdesivir Pulmonary toilet Currently on 5 L supplemental oxygen Wean oxygen as able Patient demands to be discharged home despite explaining the risks and consequences of He prefers to sign out AGAINST MEDICAL ADVICE Patient also states not to contact family Will consult psych to assist medical decision making Concern for mild cognitive impairment and poor decision-making Explained on multiple occasions regarding patient's instability to maintain oxygen and need for further monitoring while in the hospital. Patient states that he understands the consequences and continues to refuse to stay. Morbid Obesity BMI:44 H/O ADD/Asperger's syndrome currently not on medications. 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 Past tobacco abuse DVT Px: Lovenox SQ Code Status Full code Admission and Anticipated Discharge Date Admission Date: June 08, 2021 Subjective Patient is seen and examined at bedside Patient states subjectively feeling well Currently on 94% on 5 L supplemental oxygen Patient refuses to stay for further monitoring and treatment He wants to be discharged today Admits to having minimal cough with expectoration Denies any dyspnea, dizziness, nausea, abdominal pain Review of Systems Review of Systems: All systems reviewed & are unremarkable except as noted in Subjective Physical Exam Physical Exam: Physical Exam: Vitals signs as noted above General Appearance:Morbid Obesity, no apparent distress Head: normocephalic, Atraumatic Eyes: normal inspection, EOMI Neck: supple, Trachea midline Respiratory/Chest: Decreased breath sounds, CTA Cardiovascular: S1, S2, No murmur Abdomen/GI:Soft, Non tender, Bowel sounds present Extremities/Musculoskeletal:normal inspection, no edema Neurologic/Psych:AAOX3, grossly no focal neurological deficits Skin: normal color, warm Results & Data Results & Data ([facility]) Vital Signs (Past 12 Hours) Vital Signs Temp Pulse Resp BP Pulse Ox 06/10/21 15:06 36.8 C 98 H 18 139/100 94 06/10/21 12:16 149/78 H 06/10/21 11:08 36.4 C L 90 18 136/102 H 93 06/10/21 08:10 36.4 C L 81 18 134/98 89 L 06/10/21 05:03 36.9 C 92 H 22 121/68 96 Laboratory Results [facility] 06/10/21 07:44 Sodium 136 Potassium 4.4 Chloride 102 Carbon Dioxide 30 BUN 17 Creatinine 0.70 Glucose 135 H Calcium 8.5 Liver Function 06/10/21 Range/Units 07:44 Total Bilirubin 0.5 (0.2-1) mg/dl AST 25 (15-37) U/L ALT 38 (12-78) U/L Alkaline Phosphatase 67 (45-117) U/L Albumin 2.9 L (3.4-5.0) gm/dl
--- NOTE | 2021-06-10 20:01 | Discharge Summary ---
Date of Service June 10, 2021 Admission HPI Per Admitting Provider History obtained from patient and records. Medical history significant for ADD, Asperger's syndrome, past tobacco abuse. 1 week history of dry cough symptoms, loss of taste and smell, chest pain with coughing. Transient headache symptoms. No known recent COVID-19 contacts. Patient has not received COVID-19 vaccination. Patient seen at urgent care center yesterday. O2 sats 89 to 93%. Patient directed to ER for evaluation. Chest x-ray showed multifocal airspace opacities typical for pneumonia. COVID- 19 test was positive. O2 sats of 90s done at the ER false readings as per ER provider documentation. Patient discharged home. Worsening shortness of breath at home. Patient return to ER. O2 sats 80s on room air. IV Decadron given at the ER. Medical History as above Surgical History : None Family History : Hypertension, PUD Personal/Social history : Past tobacco abuse, occasional EtOH intake, disabled Admission Exam Per Admitting Provider Physical Exam Physical Exam: GENERAL: Slightly uncomfortable, morbidly obese, minimal respiratory distress, incessant dry coughing SKIN: Normal color, warm HEENT: [place] palpebral conjunctivae, no ptosis, dry buccal mucosa, nasal cannula in place NECK : Supple, short neck, no tenderness CHEST : Decreased breath sounds, no tenderness HEART : Tachycardic, no obvious murmurs ABDOMEN: Some distention, nontender EXTREMITIES : Minimal LE swelling, no LE tenderness, no other conspicuous deformities noted NEUROLOGIC : Coherent, no facial asymmetry, no other gross focality Principal Diagnosis COVID-19 associated pneumonia with acute hypoxic respiratory failure Diabetes mellitus new diagnosis Morbid obesity Discharge Data Allergies Allergy/AdvReac Type Severity Reaction Status Date / Time amphetamine Allergy Unknown TREMOR Verified 06/08/21 01:16 dextroamphetamine Allergy Unknown TREMOR Verified 06/08/21 01:16 risperidone Allergy Unknown TREMOR Verified 05/18/19 17:56 Consultations 06/10/21 16:46 Consult Psychiatry Routine Ordered Studies 06/08/21 00:48 CT angio chest PE protocol Urgent Hospital Course (1) Acute hypoxemic respiratory failure: COVID-19 associated pneumonia with acute hypoxic respiratory failure --CTA:No pulmonary emboli identified although segmental and subsegmental pulmonary arteries suboptimally assessed due to respiratory motion. Multifocal consolidation and ground glass opacities throughout the lungs consistent with viral pneumonia. Mildly enlarged mediastinal and bilateral hilar lymph nodes which are likely reactive. Hepatic steatosis. -Negative troponin -Check CRP, Procalcitonin Continue Remdesivir, Dexamethasone Encourage frequent Proning Lasix as needed Albuterol PRN Continue Supplemental Oxygen DVT prophylaxis on Lovenox Monitor LFTs, renal function while on Remdesivir Pulmonary toilet Currently on 5 L supplemental oxygen Wean oxygen as able Patient demands to be discharged home despite explaining the risks and consequences of He prefers to sign out AGAINST MEDICAL ADVICE Patient also states not to contact family Will consult psych to assist medical decision making Concern for mild cognitive impairment and poor decision-making Explained on multiple occasions regarding patient's instability to maintain oxygen and need for further monitoring while in the hospital. Patient states that he understands the consequences and continues to refuse to stay. Patient left AMA Morbid Obesity BMI:44 H/O ADD/Asperger's syndrome currently not on medications. 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 Past tobacco abuse DVT Px: Lovenox SQ Code Status Full code Total Time Total Time Spent Total Time Spent (In Minutes): 50 minutes Discharge Plan Discharge Items Patient Disposition: Against Medical Advice Reason For Visit: RESP FAILURE, COVID Activity: As commented below Non-emergency contact: Primary Care Provider Follow-up/Referrals: Michael Chavez MD [Primary Care Provider] - Pending Studies at Discharge: No Stand-Alone Forms: My [employer], Smoking Cessation Medications and DC Order Prescriptions: Continued zinc 50 mg Tablet 50 mg PO DAILY RF: 0 Mucinex Cold 2.5-100 mg/5 mL Liquid 20 ml PO BID RF: 0 benzonatate [Tessalon Perles] 100 mg capsule 100 mg PO TID PRN (Reason: cough) 5 Days Qty: 15 RF: 0 albuterol sulfate 90 mcg/actuation HFA aerosol inhaler 2 puffs INH 6XD PRN (Reason: shortness of breath or wheezing) Qty: 6.7 RF: 0 Discharge Orders: Left Against Medical Advice (Routine); Ordered 06/10/21 Ordered By: Ketan Galeana/Other Patient Handouts: Exercise: Why Fitness Matters, Diabetes: Meal Planning, Type 2 Diabetes Admission Data Admit Date/Time: 06/08/21 03:49 Attending Provider: Ketan Diaz Admit Provider: Pratik Parham Primary Care Provider: Michael Chavez Other Providers: Ruthie Cleveland ; Francheska Salinas ; Melanie Bradford ; Jarred Swann
--- NOTE | 2021-06-11 08:19 | Communication Note ---
Date of Service: June 11, 2021 Patient seen by psych liason last evening but was discharged before he could be seen for psychiatry consult.
== END 2021-06-10 19:20 | disposition left against medical advice (07) | DRG 177 ==
LOC: ED 00:16 → 2S 03:49